=== PATIENT | male | born 1935 | race Caucasian/White ===

== ENCOUNTER → 2019-05-18 08:53 | Outpatient (CLI) | payer MEDICARE, OTHER, SELFPAY ==
--- NOTE | 2019-05-18 | DI.ECHO.S_ITS ---
[facility] +---------+ : : [address] [place] : : : : [id number] : : : : Phone: [phone]---------+ Echocardiogram Report + + :Name: BETY SHARIF Study Date: 05/18/2019 Height: 69 in : :[facility] Weight: 220 lb : : Gender: Male BSA: 2.2 m2 : :: 1935 Age: 84 yrs BP: 124/82 mmHg: :Reason For Study: Aortic valve stenosis : : Performed By: [facility] Staff : :Referring: CHENTE TREVINO : + + Interpretation Summary 1) Normal left ventricular thickness, size, and systolic function (EF 60-65%). 2) Normal right ventricular size and function. 3) There is mild to moderate aortic stenosis (valve area 1.2cm2, mean gradient 14mmHg, severity ratio 0.36). 4) Compared to the Echo done 06/05/2016, no significant change. Procedure: A two-dimensional transthoracic echocardiogram with color flow and Doppler was performed. The study quality was technically difficult. Prior echo performed on 06/05/16. The patient was in normal sinus rhythm during the exam. Left Ventricle: The left ventricle is normal in size. There is normal left ventricular wall thickness. Left ventricular systolic function is normal. The ejection fraction is estimated to be 60-65%. There are no obvious focal wall motion abnormalities noted but poor endocardial definition reduces the sensitivity for the detection of such. Right Ventricle: The right ventricle is normal in size and function. Atria: The left atrial size is normal. Right atrial size is normal. The interatrial septum is intact with no evidence for an atrial septal defect. The atrial septum is aneurysmal. Mitral Valve: The mitral valve is grossly normal. There is mild mitral annular calcification. There is trace mitral regurgitation. Aortic Valve: The aortic valve is not well visualized. There is mild to moderate aortic stenosis. The calculated aortic valve area is 1.2 cm2. The aortic valve mean gradient is 14 mmHg. The peak aortic velocity is 2.5 m/sec. No aortic regurgitation is present. Tricuspid Valve: The tricuspid valve is normal in structure and function. There is trace tricuspid regurgitation. Pulmonary artery pressures cannot be estimated because of the lack of a measurable TR jet velocity. Pulmonic Valve: The pulmonic valve is not well visualized. There is trace pulmonic regurgitation. Great Vessels: The aortic root is normal size. The ascending aorta could not be visualized. The pulmonary artery is normal size. The IVC is of normal diameter and collapses greater than 50% with a sniff. This suggests a low right atrial pressure of 3 mm Hg. Pericardium/ Pleura There is no pericardial effusion. There is no pleural effusion. MMode/2D Measurements & Calculations LVIDd: 5.0 cm LVOT diam: 2.1 cm LVIDs: 3.4 cm Ao root diam: 3.4 cm FS: 31.8 % Aortic Jxn: 3.1 cm IVSd: 1.2 cm LVPWd: 1.2 cm LV donald. diameter/BSA (cm/m^2): 2.3 LV sys. diameter/BSA (cm/m^2): 1.6 LA A2 area: 19.1 cm2 RA long axis: 5.0 cm LA A4 area: 18.7 cm2 RA area: 13.8 cm2 LA length (vol): 4.8 cm RA vol: 32.4 ml LA vol: 63.4 ml RA : 15.1 ml/m2 LA vol index: 29.5 ml/m2 TAPSE: 2.2 cm Doppler Measurements & Calculations Ao V2 max: 249.9 cm/sec LVOT Max Melchor: 79.5 cm/sec Ao V2 mean: 176.0 cm/sec LV V1 max P.5 mmHg Ao max P.0 mmHg LV V1 VTI: 19.7 cm Ao mean P.4 mmHg DON(I,D): 1.2 cm2 Ao V2 VTI: 55.2 cm DON(V,D): 1.1 cm2 sev ratio: 0.36 DON indexed to BSA (cm^2/m^2): 0.56 MV E max melchor: 65.0 cm/sec SV(LVOT): 66.5 ml MV A max melchor: 109.4 cm/sec MV E/A: 0.59 Med Peak E' Melchor: 4.7 cm/sec E/E' med: 13.9 Lat Peak E' Melchor: 5.8 cm/sec E/E' lat: 11.3 E/e' average: 12.6 MV dec time: 0.35 sec Reading Physician:11:06 AM
== END ==
PROVIDERS: Family Provider Family Medicine; PCP Family Medicine; Visit Provider Internal Medicine Cardiovascular Disease
DX: I35.0 Nonrheumatic aortic (valve) stenosis (principal)
CPT/HCPCS: 93306

== ENCOUNTER → 2019-07-20 09:09 | Outpatient (CLI) | payer MEDICARE, OTHER, SELFPAY ==
--- NOTE | 2019-07-20 | DI.NM.S_ITS ---
PROCEDURE: [place] BONE SCAN WHOLE BODY RADIOPHARMACEUTICAL: 22.00 mCi Tc-99m MDP IV. INDICATIONS: BLADDER NEOPLASM TECHNIQUE: Delayed whole-body scintigrams were obtained approximately 3-4 hours after intravenous injection of radiotracer. Anterior and posterior views were acquired from vertex to feet. Additional left and right oblique views of the pelvis were obtained. COMPARISON: [facility], CT, CT CHEST ABD PEL W CON, 07/20/2019, 10:33. FINDINGS: Symmetric mild to moderately increased radionuclide uptake in bilateral shoulder joints are, elbow joint and first CMC joint are seen most likely represent osteoarthritic changes. Similar mild increased uptake in bilateral hip joints are also seen. There is focal moderate to intensely increased tracer uptake involving the right lateral tibial plateau and may represent severe osteoarthritic changes in this area, radiographic correlation is recommended. Small focus of increased uptake involving right occipital calvarium is seen, metastatic ovarian lesion cannot be excluded. IMPRESSION: 1. Tiny focus of increased uptake involving right occipital calvarium, suggest CT of head for further evaluation of this area to rule out bony metastasis. 2. Focus of intense increased uptake involving right lateral tibial plateau and may represent severe osteophytic changes versus nondisplaced fracture. Metastatic bone lesion cannot be entirely excluded, radiographic correlation is recommended. 3. Osteophytic changes as above. No other areas of abnormal uptake is seen to suggest additional bony metastasis. Dictated by: Shaheen Su M.D. on 07/20/2019 at 15:08 Approved by: Shaheen Su M.D. on 07/20/2019 at 15:34
[2019-07-20 10:02] LABS: BUN Creatinine Ratio 23.8 (6-22); Blood Urea Nitrogen 19 mg/dL (9-20); Estimated Glomerular Filt Rate > 60.0 mL/min (>60)
--- NOTE | 2019-07-20 10:27 | DI.CT.S_ITS ---
PROCEDURE: CT CHEST ABD PEL W CON INDICATIONS: BLADDER NEOPLASM TECHNIQUE: After the administration of oral and intravenous contrast, 5 mm thick sections acquired from the lung apices to the symphysis. 5 mm coronal and sagittal reformats were performed, with additional 7 mm coronal MIP reformats through the lungs. For radiation dose reduction, the following was used: automated exposure control, adjustment of mA and/or kV according to patient size. COMPARISON: [place], [place], PET/CT SKULL BASE TO MID THIGH, 01/17/2017, 10:09. FINDINGS: Image quality: Excellent. CHEST: Lungs and pleura: No acute airspace opacities. Slight interlobular septal thickening in the periphery of bilateral mid to lower lung pool are seen suggestive of early interstitial lung parenchymal disease. No discrete pulmonary nodule or mass is seen. Bibasilar scarring/atelectasis is seen. No pleural effusions or pneumothorax. Central and peripheral airways appear patent and normal in caliber. Mediastinum: Heart size is normal. No pericardial effusion. 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 A prominent superior anterior mediastinal lymph node is seen and measures 1.2 cm in short axis diameter. 1 cm subcarinal lymph node is also seen. No evidence of hilar lymphadenopathy. Moderate amount of atherosclerotic calcifications are seen. Thoracic aorta and central pulmonary arteries are normal in size. Esophagus is normal in caliber. No hiatal hernia. Chest wall: Right chest wall Port-A-Cath tip is in SVC. No axillary or supraclavicular adenopathy by size criteria. Thyroid gland is within normal limits. ABDOMEN: Solid organs: Liver is normal in size. 2.8 cm left hepatic lobe cyst is unchanged. 1.3 cm left hepatic cyst is also noted and unchanged from prior studies. No new hepatic lesion is noted. Gallbladder is within normal limits. Biliary system is non dilated. Pancreas is atrophic in appearance. No discrete pancreatic lesion. Spleen is normal in size and enhancement. No adrenal nodules. Kidneys demonstrate normal size and enhancement, without hydronephrosis. Bilateral peripelvic renal cysts are seen. No gross abnormality is seen in the visualized portion of bilateral ureters. Peritoneum and bowel: Bowel loops demonstrate normal wall thickness and caliber. No free fluid or air. The appendix is visualized and is within normal limits. Extensive sigmoid diverticulosis is seen, no CT evidence of acute diverticulitis. Nodes and vessels: No retroperitoneal or mesenteric adenopathy by size criteria. Aorta and inferior vena cava are normal in size. Miscellaneous: No ventral hernias. PELVIS: Genitourinary: Bladder wall thickness is normal. Enlarged prostate gland with mild mass effect of floor of urinary bladder is seen. No discrete bladder wall mass is noted on the current study. Miscellaneous: Bilateral inguinal hernias are seen containing fat only. Mildly prominent bilateral inguinal lymph nodes are noted and measures up to 1.1 cm in short axis diameter. Bones: No suspicious bony lesions. No vertebral body compression fractures. Degenerative disc disease throughout thoracic and lumbar spine is seen. IMPRESSION: 1. Bladder wall thickness is normal on the current study. Enlarged prostate gland with mass effect of floor of urinary bladder. No discrete bladder wall mass is seen. No gross abnormalities are noted in bilateral ureters. 2. Stable appearing bilateral peripelvic renal cysts. No hydronephrosis. 3. Mildly enlarged mediastinal lymph nodes as well as bilateral inguinal lymph nodes as above. No mesenteric or retroperitoneal lymphadenopathy. 4. Stable hepatic cysts. 5. Slight thickened interlobular septa and periphery of bilateral mid to lower lung pool. Bibasilar scarring/atelectasis. No pleural effusion or pneumothorax. Airway is patent. 6. No definite lytic or sclerotic bony lesion is seen. Dictated by: Shaheen Su M.D. on 07/20/2019 at 16:33 Approved by: Shaheen Su M.D. on 07/20/2019 at 17:00
== END ==
PROVIDERS: Family Provider Family Medicine; PCP Family Medicine; Visit Provider Urology
DX: C67.9 Malignant neoplasm of bladder, unspecified (principal); R59.0 Localized enlarged lymph nodes; K76.89 Other specified diseases of liver; N28.1 Cyst of kidney, acquired; N40.0 Benign prostatic hyperplasia without lower urinary tract symptoms; K57.30 Diverticulosis of large intestine without perforation or abscess without bleeding; K40.20 Bilateral inguinal hernia, without obstruction or gangrene, not specified as recurrent; I25.10 Atherosclerotic heart disease of native coronary artery without angina pectoris; M51.36 Other intervertebral disc degeneration, lumbar region; M51.34 Other intervertebral disc degeneration, thoracic region
CPT/HCPCS: 36415; 71260; 74177; 78306; 82565; 84520; A9503; Q9967

== ENCOUNTER → 2019-09-06 11:26 | Outpatient (CLI) | payer MEDICARE, OTHER, SELFPAY ==
--- NOTE | 2019-09-06 | DI.RAD.S_ITS ---
PROCEDURE: XR KNEE RT 1TO2V INDICATIONS: C67.5 TECHNIQUE: 3 views of the knee were acquired. COMPARISON: None. FINDINGS: Bones: No fractures or dislocations. No suspicious bony lesions. Scattered degenerative subchondral sclerosis and spurring. Moderate narrowing of the medial joint space. Small cortical irregularity involving the distal medial femoral condyle articular surface, technically age-indeterminate. This could reflect small osteochondral impaction or OCD, and could be further investigated with MRI as clinically warranted Soft tissues: Small joint effusion. No suspicious soft tissue calcifications. Scattered vascular calcifications IMPRESSION: Moderate right knee joint degeneration as above. If the patient's pain or other symptoms persist, consider further evaluation with MRI Small joint effusion Dictated by: Duong Orellana M.D. on 09/06/2019 at 13:38 Approved by: Duong Orellana M.D. on 09/06/2019 at 13:55
--- NOTE | 2019-09-06 11:46 | DI.CT.S_ITS ---
PROCEDURE: CT HEAD/BRAIN WO CON INDICATIONS: Malignant neoplasm of bladder neck TECHNIQUE: Noncontrast 4.5 mm thick angled axial sections acquired from the foramen magnum to the vertex, with coronal and sagittal reformats. For radiation dose reduction, the following was used: automated exposure control, adjustment of mA and/or kV according to patient size. COMPARISON: [place], [place], PET/CT SKULL BASE TO MID THIGH, 01/17/2017, 10:09. [facility], CT, CT HEAD WITHOUT CONTRAST, 06/11/2019, 23:59. [place], [place], [place] BONE SCAN WHOLE BODY, 07/20/2019, 13:06. FINDINGS: Image quality: Excellent. CSF spaces: Basal cisterns are patent. No extra-axial fluid collections. The ventricles are symmetric in size and shape. Brain: No intracranial bleeds or masses. There is cerebral volume loss for age, with resultant ventricular and sulcal prominence. There are periventricular and deep white matter chronic small vessel ischemic changes. There is intracranial internal carotid artery atherosclerosis. Skull and face: Calvarium and visualized facial bones appear unchanged from comparison study 06/11/19, without new suspicious lesions. With reference to the prior study the left frontal and right posterior occipital parietal inner table and diploic space lucencies each have not definitely changed. These each, however, are associated with subtle foci of elevated isotope deposition on nuclear medicine bone scan imaging performed 07/20/19. Sinuses: Visualized sinuses and mastoids are clear. IMPRESSION: Within the brain parenchyma no lesion is found. There are 2 small radiolucencies involving the inner table of the calvarium extending into the diploic space, but not involving the outer table of the skull, correlated with subtle apparent nuclear medicine bone scan abnormalities. These are virtually identical in appearance and morphology to the prior head CT scanning from 06/11/19. Continued attention to these [address] scanning is recommended. These 2 sites appear to correlate with subtle small bone scan abnormalities, raising the degree of suspicion that these represent small metastatic foci significantly. Dictated by: Maciel Way M.D. on 09/06/2019 at 12:48 Approved by: Maciel [address] M.D. on 09/06/2019 at 12:57
== END ==
PROVIDERS: Family Provider Family Medicine; PCP Family Medicine; Referring Provider Internal Medicine Hematology & Oncology; Visit Provider Internal Medicine Hematology & Oncology
DX: C67.5 Malignant neoplasm of bladder neck (principal); I65.29 Occlusion and stenosis of unspecified carotid artery; M17.11 Unilateral primary osteoarthritis, right knee; M25.461 Effusion, right knee
CPT/HCPCS: 70450; 73560